=== PATIENT | male | born 1985 | race Caucasian/White ===

== ENCOUNTER 2020-05-22 15:10 | Emergency (ER) | payer OTHER ==
[2020-05-22] MEDS ORDERED: CHERRY SYRUP 10 ML UDC PO ONE (15:43)
[2020-05-22] MEDS ORDERED: DEXAMETHASONE 10 MG/ML VIAL PO STA (15:43)
--- NOTE | 2020-05-22 16:09 | XRAY Report ---
PROCEDURE: Elbow 3 View RT INDICATIONS: radial head pain decreased ROM TECHNIQUE: 3 views of the elbow were acquired. COMPARISON: None FINDINGS: Bones: No fractures or dislocations. No suspicious bony lesions. Soft tissues: No elbow joint effusion. No suspicious soft tissue calcifications. IMPRESSION: No plain film abnormality is seen. No abnormality of the radial head can be seen. If clinically appropriate, please consider a follow-up CT or MRI for further evaluation (assuming micaela t there is no contraindication). Reviewed by: Kelby Jamil MD on 05/22/2020 3:08 PM MICHAELLE Approved by: Kelby Jamil MD on 05/22/2020 3:08 PM MICHAELLE Station ID: [id number]
--- NOTE | 2020-05-22 16:28 | ED Physician Documentation ---
PD HPI UPPER EXT INJURY - Stated complaint Stated Complaint: RIGHT ARM WEAKNESS/PAIN - Chief complaint Chief Complaint: Ext Problem - History obtained from History obtained from: Patient, Friend - History of Present Illness Location: Right, Elbow Type of injury: Other (over uses) Where injury occurred: Home Timing - onset: How many days ago (5) Timing - duration: Days (5) Timing - details: Gradual onset, Still present Improved by: Rest, Ice, Immobilization Worsened by: Moving, Palpating Associated symptoms: Tingling. No: Weakness, Numbness Contributing factors: No: Anticoagulated Similar symptoms before: Diagnosis Recently seen: Clinic - Additonal information Additional information: 35-year-old male who has injured his right elbow has had persistence and recurrence of elbow pain periodically. It usually has taken about a week to get over this. He describes it as being unable to fully extend his elbow and he did go through 6 to 7 months of physical therapy with some improvement. He now has pain again in his elbow and difficulty moving. He believes this might of been a fter excessive use. He has had MRI and recommendation for surgery. He has an appointment to see orthopedics in 3 weeks. Review of Systems Constitutional: denies: Fever Eyes: denies: Decreased vision Ears: denies: Ear pain Nose: denies: Congestion Throat: denies: Sore throat Respiratory: denies: Dyspnea GI: denies: Vomiting : denies: Dysuria PD PAST MEDICAL HISTORY - Past Medical History Past Medical History: No - Past Surgical History Past Surgical History: No - Present Medications Home Medications: Ambulatory Orders Medication Instructions Recorded Confirmed Hydrocodone/Acetaminophen 1 - 2 each PO Q6H PRN #14 tablet 05/22/20 [Hydrocodone-Acetamin 5-325 mg] - Allergies Allergies/Adverse Reactions: Allergies Allergy/AdvReac Type Severity Reaction Status Date / Time No Known Drug Allergies Allergy Verified 05/22/20 15:18 - Social History Does the pt smoke?: Yes Smoking Status: Current every day smoker Does the pt drink ETOH?: Yes Does the pt have substance abuse?: No - Immunizations Immunizations are current?: Yes - POLST Patient has POLST: No PD ED PE NORMAL - Vitals Vital signs reviewed: Yes (hypertensive ) - General General: Alert and oriented X 3, No acute distress, Well developed/nourished - HEENT HEENT: Atraumatic, PERRL, EOMI - Respiratory Respiratory: No respiratory distress - Derm Derm: Normal color, Warm and dry, No rash - Extremities Extremities: No deformity, No edema, Other (There is specific tenderness to the radial head and not to the lateral epicondyle. There is restriction in ROM to extention and supination/pronation. There is numbness to the 4th and 5th digits. ) - Neuro Neuro: Alert and oriented X 3, nutrition partner 2-12 intact, No motor deficit, Normal speech Eye Opening: Spontaneous Motor: Obeys Commands Verbal: Oriented GCS Score: 15 - Psych Psych: Normal mood, Normal affect Results - Vitals Vitals: Vital Signs - 24 hr 05/22/20 05/22/20 15:13 16:57 Temperature 36.7 C 36.0 C L Heart Rate 100 88 Respiratory 16 16 Rate Blood Pressure 142/92 H 138/88 H O2 Saturation 100 100 Oxygen O2 Source Room air - Rads (name of study) elbow Radiology: Prelim report reviewed (Impression: No plain film abnormality is seen. No abnormality of the radial head can be seen.), EMP read indepedently, See rad report PD MEDICAL DECISION MAKING - ED course Complexity details: reviewed old records, reviewed results, re-evaluated patient, considered differential, d/w patient, d/w family ED course: 35-year-old male with right elbow pain does have some known tendinopathy and he is administered dexamethasone 10 mg as well as Toradol 60 mg IM. He has some improvement and he is placed into a sling. Departure - Departure Disposition: 01 Home, Self Care Clinical Impression: Elbow pain, right Condition: Stable Instructions: ED Sprain Elbow Follow-Up: [facility] [Provider Group] Prescriptions: Hydrocodone/Acetaminophen [Hydrocodone-Acetamin 5-325 mg] 1 - 2 each PO Q6H PRN #14 tablet PRN Reason: Pain Discharge Date/Time: 05/22/20 16:58
[2020-05-22 16:59] VITALS: BP 138/88
== END 2020-05-22 16:58 | disposition home or self-care (01) ==
LOC: ED 15:10
DX: M67.921 Unspecified disorder of synovium and tendon, right upper arm (principal); F17.200 Nicotine dependence, unspecified, uncomplicated
CPT/HCPCS: 73080; 99283; 99284; A9270

== ENCOUNTER 2020-06-19 08:56 | Outpatient (CLI) | payer OTHER ==
--- NOTE | 2020-06-19 11:00 | MRI Report ---
PROCEDURE: Elbow RT W/O INDICATIONS: RIGHT ELBOW EPICONDYLITIS TECHNIQUE: Noncontrast coronal proton density fast spin echo and T2 fast spin echo with fat saturation, axial an d sagittal T1 spin echo and T2 fast spin echo with fat saturation through the elbow. COMPARISON: Right elbow radiographs dated 05/22/2020. FINDINGS: Image quality: Excellent. Lateral structures: There is moderate tendinosis and low-grade partial intrasubstance tearing of the common extensor tendon at its origin on the medial epicondyle. The lateral ulnar collateral ligament and radial collateral ligament both appear intact. Medial structures: The ulnar collateral ligament appears intact. There is mild tendinosis in the com mon flexor tendon at the origin. A small amount of edema in the adjacent musculature may represent a low-grade muscle strain. The ulnar nerve appears normal in size and signal within the cubital tunnel. Anterior structures: There is increased signal intensity within the distal biceps tendon at its inse rtion onto the radial tuberosity compatible with moderate tendinosis. A medium-sized bicipitoradial b ursal effusion is seen. The distal brachialis tendon insertion is intact. The median and radial neuro vascular bundles appear normal; no focal muscle atrophy to suggest nerve impingement. Posterior structures: The triceps tendon appears intact. No olecranon bursal fluid. Bone and cartilage: No bone marrow contusion or acute fracture. No osteochondral injury. No signifi cant joint effusion is seen. IMPRESSION: 1. Moderate insertional tendinosis of the distal biceps tendon with a medium-sized bicipital radial bursal effusion. 2. Moderate common extensor tendinosis with superimposed low-grade intrasubstance tearing at the elke gin. 3. Mild common flexor tendinosis. Trace edema in the proximal flexor musculature may represent a low -grade muscle strain. Reviewed by: Jabari Thurston MD on 06/19/2020 10:59 AM PDT Approved by: Jabari Thurston MD on 06/19/2020 10:59 AM PDT Station ID: [id number]
--- NOTE | 2020-06-19 11:06 | CT Report ---
PROCEDURE: UPPER EXTREMITY WO - RT INDICATIONS: RIGHT ELBOW EPICONDYLITIS,DERANGEMENTS OF RIGHT EL TECHNIQUE: Noncontrast 1 mm axial sections acquired of the right elbow, with coronal and sagittal reformats. 3-D reformatted images were also reconstructed. COMPARISON: None. FINDINGS: Image quality: Excellent. Bones: No acute fracture or dislocation. There is minimal marginal spurring at the margins of the el bow. No significant joint space narrowing is seen. Soft tissues: No significant joint effusion is seen. A bicipitoradial bursal effusion is noted. Calc ifications are noted in the distal biceps tendon with mild spurring of the radial tuberosity. However , the ligaments, tendons, and articular cartilages are not well evaluated with CT. The included muscu lature demonstrates normal bulk. Mild nonspecific subcutaneous edema or thickening seen overlying the olecranon. IMPRESSION: 1. Calcifications of the distal biceps tendon are compatible with underlying tendinopathy. Bicipital radial bursal effusion is present. 2. No acute osseous abnormality. 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 Reviewed by: Jabari Thurston MD on 06/19/2020 11:05 AM PDT Approved by: Jabari Thurston MD on 06/19/2020 11:05 AM PDT Station ID: [id number]
== END 2020-06-19 08:57 | disposition home or self-care (01) ==
LOC: DI 08:56
PROVIDERS: ATTEND Orthopaedic Surgery
DX: M77.01 Medial epicondylitis, right elbow (principal); M24.821 Other specific joint derangements of right elbow, not elsewhere classified; M67.823 Other specified disorders of tendon, right elbow